=== PATIENT | male | born 1985 | race Caucasian/White ===

== ENCOUNTER 2022-07-23 11:57 | Emergency (ER) | payer OTHER, SELFPAY ==
--- NOTE | ~2022-07-23 | XR_ITS ---
EXAMINATION: XR ankle RT min 3V INDICATION: Right ankle pain TECHNIQUE: Four views of the right ankle are obtained. COMPARISON: 07/16/2016 there is chronic heterotopic ossification distal to the lateral malleolus. Also FINDINGS: There is chronic heterotopic ossification distal to the lateral malleolus. There is a quest ionable new heterotopic ossification immediately adjacent to the lateral malleolus. Also seen is a ch ronic triangular fragment adjacent to the medial malleolus, consistent with prior fracture. Ankle ali gnment is normal. The soft tissues are unremarkable. IMPRESSION: 1. Possible acute avulsion injury of the lateral malleolus. Reviewed, dictated and finalized at location B.
[2022-07-23 12:11] VITALS: BP 143/88; PULSE 73; RESP 18; TEMP 36.6; O2SAT 99
--- NOTE | 2022-07-23 12:11 | ED.GENADULT ---
HPI - General Adult General Chief complaint: Extremity Injury, Lower Stated complaint: foot injury History of Present Illness HPI narrative: 36 y/o male. PMHx None reported. [facility] with acute complaints of RT ankle pain, S/P injury immediately [employer]ENT. Client tells me he had suffered a mechanical injury, he was helping someone at home, ambulating outside, and accidentally stepped off of the curb on his Driveway. He reports an immediate 'pop' and sudden pain and swelling to his RT ankle. Denies prodromal deficits. No falls or additional injury has been identified. No loss of lower extremity sensation. Non-diabetic. No additional acute c/o upon PE. Related Data Home Medications Medication Instructions Recorded Confirmed bupropion HCl 150 mg 24 hr tablet, 150 mg PO DAILY 07/23/22 07/23/22 extended release (Wellbutrin XL) citalopram 40 mg tablet (Celexa) 40 mg PO DAILY 07/23/22 07/23/22 rosuvastatin 5 mg tablet (Crestor) 5 mg PO DAILY 07/23/22 07/23/22 testosterone cypionate 100 mg/mL 100 mg DIRECTED 07/23/22 07/23/22 intramuscular oil Allergies Allergy/AdvReac Type Severity Reaction Status Date / Time No Known Allergies Allergy Verified 07/23/22 12:18 Review of Systems Review of Systems: MUSCULOSKELETAL: RT ankle pain. Denies additional joint pain or myalgia. NEUROLOGIC: Denies numbness, or focal weakness. REMAINDER OF ROS: NEGATIVE. Exam Narrative: GENERAL: This is a well-nourished, well-developed adult, in no apparent distress. HEAD: normocephalic, atraumatic. CARDIOVASCULAR: Regular rate and rhythm. Pulses intact RLE, all sites. SKIN: warm, intact with mild soft tissue swelling and bruising overlying RT Lateral ankle. No tenting. NEURO: Alert, No focal neurologic deficits. Good sensation and discrimination RLE. EXTREMITIES: Moderate RT lateral malleolus soft tissue swelling. No obvious or open deformity or FXs. ROM limited 2/2 pain. No laxity. Pulses and sensation are preserved. Mild medial tenderness. Remainder of musculoskeletal exam is negative. Course Course Level of Care: Express Care Visit LOOM FIXER/PA Physician Supervision The patient has been informed that they may have pre-hypertension or Hypertension based on a BP reading in the clinic. It is recommended that the patient call the primary care provider listed on their discharge instructions or a physician of their choice as soon as possible (within 1-2week) to arrange follow up for further evaluation of possible pre-hypertension or hypertension. Vital Signs Vital signs: Vital Signs Temperature 36.6 C 07/23/22 12:11 Pulse Rate 73 07/23/22 12:11 Respiratory Rate 18 07/23/22 12:11 Blood Pressure 143/88 H 07/23/22 12:11 Pulse Oximetry 99 07/23/22 12:11 Oxygen Delivery Room Air 07/23/22 12:11 Temperature 36.6 C 07/23/22 12:11 Pulse Rate 73 07/23/22 12:11 Respiratory Rate 18 07/23/22 12:11 Blood Pressure 143/88 H 07/23/22 12:11 Pulse Oximetry 99 07/23/22 12:11 Oxygen Delivery Room Air 07/23/22 12:11 Medical Decision Making MDM Narrative Medical decision making narrative: -Mechanical RT ankle injury, w/o prodromal deficits. -No neurovascular deficits. No compartmental concerns. -ROM limited 2/2 pain, no laxity. -No open Fxs or tenting at site. -XRAY RT Ankle: Possible acute avulsion injury of the lateral malleolus. Incidentally noted is a chronic triangular fragment adjacent to the medial malleolus, consistent with prior fracture. Ankle alignment is normal. The soft tissues are unremarkable. -No gross displacement or angulation. -Client has been stabilized in Short leg OCL RT. He is to resume Non-weight bearing RLE at this time. -Crutches have been provided for safe mobility. -Post Splint application neurovascular status has been re-evaluated and remains well. -RICE regimen. I have given him a prescription for NSAID & Short course [place] prn for moderate brian
[2022-07-23] MEDS: KETOROLAC (*BKC) 60 MG/2 ML VIAL IM (12:42)
== END 2022-07-23 13:20 | disposition home or self-care (01) ==
PROVIDERS: Emergency Provider Nurse Practitioner Adult Health; PCP Physician Assistant
DX: S82.61XA Displaced fracture of lateral malleolus of right fibula, initial encounter for closed fracture (principal); X50.9XXA Other and unspecified overexertion or strenuous movements or postures, initial encounter
CPT/HCPCS: 29515; 73610; 96372; 99214; G0463; J1885

== ENCOUNTER 2023-01-28 13:12 | Emergency (ER) | payer OTHER, SELFPAY ==
--- NOTE | ~2023-01-28 | XR_ITS ---
XR chest 2V DATE: 01/28/2023 13:43 INDICATION: Pop in right shoulder while bench pressing. Severe pain. TECHNIQUE: PA and lateral views COMPARISON: None FINDINGS: Status post C5-6 inter-vertebral body fusion. Minimal levoscoliosis of the thoracic spine. No pulmonary infiltrate or consolidation, pleural effusion or pulmonary vascular congestion or pneumo thorax. IMPRESSION: No active cardiopulmonary disease Reviewed, dictated and finalized at location B.
--- NOTE | ~2023-01-28 | XR_ITS ---
XR shoulder RT min 2V DATE: 01/28/2023 13:43 INDICATION: Pop in right shoulder while bench pressing. Severe pain. TECHNIQUE: 4 views of right shoulder COMPARISON: None FINDINGS: No fracture or dislocation, periosteal reaction or bone destruction. Normal alignment at th e acromioclavicular and glenohumeral joints. No abnormal soft tissue calcification. IMPRESSION: Negative Reviewed, dictated and finalized at location B. IMPRESSION: Negative
[2023-01-28 13:22] VITALS: BP 149/90; PULSE 74; RESP 18; TEMP 36.6; O2SAT 100
--- NOTE | 2023-01-28 14:14 | ED.CHESTPAIN ---
HPI - Chest Pain General Chief Complaint: Chest Pain Stated Complaint: chest pain Time Seen by Provider: 01/28/23 14:08 History of Present Illness HPI narrative: Patient working out today when he felt a pop and pain to his right chest; worse with movement, trying ice and tylenol with some help. Related Data Home Medications Medication Instructions Recorded Confirmed bupropion HCl 150 mg 24 hr tablet, 150 mg PO DAILY 07/23/22 08/08/22 extended release (Wellbutrin XL) citalopram 40 mg tablet (Celexa) 40 mg PO DAILY 07/23/22 08/08/22 rosuvastatin 5 mg tablet (Crestor) 5 mg PO DAILY 07/23/22 08/08/22 testosterone cypionate 100 mg/mL 100 mg DIRECTED 07/23/22 08/08/22 intramuscular oil Allergies Allergy/AdvReac Type Severity Reaction Status Date / Time No Known Allergies Allergy Verified 01/28/23 13:45 Review of Systems Review of Systems: CONST: No fever. HEENT: No sore throat C/V: Right chest pain RESP: No difficulty breathing GI: No abdominal pain : No dysuria. M/S: Right chest/shoulder pain SKIN: No rash. NEURO: Some intermittent tingling to right arm now resolved PSYCH: [No depression] [facility] Past Medical History Medical History No pertinent past medical history Family History Family History Grandparent Cancer Social History Social History Smoking status: Never smoker Alcohol intake: current Substance use: never Living arrangements: with family Occupation/Education: occupation Additional occupation/education comments: [employer] Exam Narrative: EXAMINATION OF ORGAN SYSTEMS/BODY AREAS: Constitutional: Vital signs per nursing GENERAL:[No acute distress, non-toxic appearing.] HEAD: Normal with no signs of head trauma. EYES: EOMI, conjunctiva normal ENT: Hearing grossly intact LUNGS: Nonlabored breathing. HEART: [Regular rate and rhythm]. Tender to palpation right pectoralis with some mild swelling compared to right ABD: [Soft], [nontender to palpation] EXT: Able to abduct/flex right arm, though with pain. Normal radial pulses SKIN: [No rashes or lesions.] NEURO: [Alert and oriented x 3. No gross focal sensory or strength deficits though exam limited by pain.] PSYCH: Normal affect Course Vital Signs Vital signs: Vital Signs Temperature 97.8 F 01/28/23 13:22 Pulse Rate 74 01/28/23 13:22 Respiratory Rate 18 01/28/23 13:22 Blood Pressure 149/90 H 01/28/23 13:22 Pulse Oximetry 100 01/28/23 13:22 Temperature 97.8 F 01/28/23 13:22 Pulse Rate 74 01/28/23 13:22 Respiratory Rate 18 01/28/23 13:22 Blood Pressure 149/90 H 01/28/23 13:22 Pulse Oximetry 100 01/28/23 13:22 MDM - Chest Pain MDM Narrative Medical decision making narrative: Patient presents with right-sided chest pain after lifting weights, vital signs stable here, on exam he does have some tenderness and swelling to the right pectoral muscle, he has reproduction of this pain with extension of his right arm however he is still able to move his arm, I suspect likely muscle injury, he is neurovascularly intact with good pulses and intact sensation, I did offer sling for comfort which she declined, he will be given follow-up to orthopedics, and is I have discussed with him he may benefit from MRI in the future. Chest x-ray and shoulder x-ray here does not show any obvious acute bony abnormality without fracture or dislocation. He is given return precautions and stable for discharge at this time. Discharge Plan Discharge Clinical Impression: Strain of right pectoralis muscle Patient Disposition: Home, Self-Care Condition: Stable Instructions: Antibiotic Form, Muscle Strain (ED) Additional Instructions: Please follow up with the orthopedic surgeon as you may need an MRI later if your
== END 2023-01-28 14:26 | disposition home or self-care (01) ==
PROVIDERS: Emergency Provider Emergency Medicine; PCP Physician Assistant
DX: S29.011A Strain of muscle and tendon of front wall of thorax, initial encounter (principal); X50.0XXA Overexertion from strenuous movement or load, initial encounter
CPT/HCPCS: 71046; 73030; 99284

== ENCOUNTER → 2023-02-09 10:16 | Outpatient (CLI) | payer OTHER, SELFPAY ==
--- NOTE | ~2023-02-09 | MR_ITS ---
EXAMINATION: MR shoulder RT wo con DATE: 02/09/2023 11:41 INDICATION: Right shoulder pain and swelling. TECHNIQUE: Magnetic resonance imaging (MRI) of the right shoulder was performed without intravenous c ontrast. Sequences included axial PD-weighted FS FSE, coronal oblique PD-weighted FS FSE and T2-weigh tunde FS FSE, and sagittal oblique T2-weighted FS FSE and T1-weighted FSE. COMPARISON: Right shoulder radiographs 01/28/2023 FINDINGS: Coracoacromial arch: The acromion undersurface is curved in morphology (type II). There is mild acromioclavicular joint os teoarthritis. There is mild subacromial/subdeltoid bursitis. Rotator cuff: There is mild supraspinatus and infraspinatus tendinopathy. Teres minor tendon is normal. Subscapular is tendon is normal. No tear. The rotator cuff muscle bellies are normal. Biceps tendon and glenoid labrum: Biceps tendon is in bicipital groove. Intra-articular biceps tendon is normal. The glenoid labrum is normal. Fluid: There is no glenohumeral joint effusion. Bones/cartilage: Glenoid cartilage is normal. Humeral head cartilage is normal. Other: Partially visualized is edema in right pectoralis major muscle. IMPRESSION: 1. Partially visualized edema in right pectoralis major muscle, consistent with muscle strain. 2. Mild rotator cuff tendinopathy. No tear. 3. Mild subacromial/subdeltoid bursitis. 4. Mild acromioclavicular joint osteoarthritis. Reviewed, dictated and finalized at location A.
== END ==
PROVIDERS: PCP Physician Assistant; Visit Provider Orthopaedic Surgery
DX: M79.89 Other specified soft tissue disorders (principal); M19.011 Primary osteoarthritis, right shoulder; M75.51 Bursitis of right shoulder
CPT/HCPCS: 73221

== ENCOUNTER → 2023-03-21 11:33 | Outpatient (CLI) | payer OTHER, SELFPAY ==
--- NOTE | ~2023-03-21 | MR_ITS ---
EXAMINATION: MR chest wo con DATE: 03/21/2023 12:37 INDICATION: Right pectoral muscle strain TECHNIQUE: Magnetic resonance imaging (MRI) of the right chest was performed without intravenous cont rast. A marker was placed over the region of concern. Sequences included axial T1-weighted FSE and f luid sensitive FSE STIR with large rwbuh-dw-[id number] of the entire chest as well as axial, sagittal and c oronal small [id number]-im-[id number] of the right side of the chest also with axial T1-weighted FSE and fluid s ensitive FSE STIR. COMPARISON: Right shoulder MRI dated 02/09/2023 and chest radiograph dated 02/07/2023 FINDINGS: There is a T2 hyperintense tetrahedral shaped intramuscular fluid collection at the myotendinous junc tion of the right pectoralis major muscle which measures 4.1 x 1.5 x 4.4 similar maximal orthogonal d imensions at the site of a partial tear at the myotendinous junction. On sagittal images. Affected re gion of muscle comprises approximately one fourth of the cross-sectional area of the muscle belly. Th ere appears to be approximately 6 cm medial retraction of the tear margin however the exact lateral m argin of the tear is difficult to ascertain. Remaining musculature of the chest appears normal and sy mmetric. Although not performed as a smaller dmfrv-lf-cfed dedicated right shoulder MRI, the right sh oulder appears unremarkable with no evident labral tear or rotator cuff tear with no glenohumeral jaymie nt effusion. Acromioclavicular joint is also unremarkable. There is metallic magnetic field artifact associated with what appears to be a prosthetic disc at C6-C7 as seen on prior chest radiograph. Visu alized thoracic spine is unremarkable. Heart size is normal. No pericardial or pleural effusion. IMPRESSION: 1. Partial thickness tear along the distal myotendinous junction of the right pectoralis major muscle which appears to involve less than one third of the cross-sectional area of the muscle belly. Reviewed, dictated and finalized at location A. IMPRESSION: 1. Partial thickness tear along the distal myotendinous junction of the right p ectoralis major muscle which appears to involve less than one third of the cros s-sectional area of the muscle belly.
== END ==
PROVIDERS: PCP Orthopaedic Surgery
DX: S29.011A Strain of muscle and tendon of front wall of thorax, initial encounter (principal); T14.90XA Injury, unspecified, initial encounter
CPT/HCPCS: 71550

== ENCOUNTER 2023-04-30 13:04 | Emergency (ER) | payer OTHER, SELFPAY ==
--- NOTE | ~2023-04-30 | XR_ITS ---
. XR nasal bones min 3V 04/30/2023 13:35 Indication: Trauma to the face. Procedure: 3 views nasal bones Comparison: No prior studies for comparison. Findings: No significant nasal septal deviation. Orbits are unremarkable. There is a nondisplaced fra cture distal tip of the nasal bone. Impression: 1: Nondisplaced fracture distal tip of the nasal bone. Reviewed, dictated and finalized at location L. Impression: 1: Nondisplaced fracture distal tip of the nasal bone.
[2023-04-30 13:25] VITALS: BP 170/94; PULSE 80; RESP 16; TEMP 36.6; O2SAT 97
--- NOTE | 2023-04-30 13:26 | PC.NURSE ---
TOOK PATIENT'S BLOOD PRESSURE TWICE. BOTH WERE IN THE 170/94. PATIENT DID INFORM ME THAT HE HAD TAKEN PRE WORK OUT PRIOR TO VISIT HE WAS AT THE GYM WHEN INJURY OCCURED.
--- NOTE | 2023-04-30 13:29 | ED.WOUNDLAC ---
HPI - Wound/Laceration General Chief Complaint: Wound/Laceration Stated Complaint: nose injury Time Seen by Provider: 04/30/23 13:25 Source: patient, RN notes reviewed and old records reviewed Mode of arrival: ambulatory Limitations: no limitations History of Present Illness HPI narrative: 37 year old male who presents to [facility] care with complaints of nasal injury. Patient reports that he was working out this morning and weight on equipment came loose causing him to go forward and he hit his nose on metal bar. Patient has 1cm laceration to the bridge of his nose with some swelling and bruising. Patient denies any LOC and reports that his tetanus is up to date. He reports that he called his PCP and was recommended to get follow-up at either ER or urgent care.Patient reports that it did bleed a lot at time of injury. Patient rates his pain 5/10 reports throbbing has taken some Tylenol for his pain. Onset (ago): hour(s) (this morning) Location: face (bridge of nose) Place: other (gym) Patient tetanus UTD: Yes Treatments prior to arrival: bandage and other (Tylenol) Related Data Home Medications Medication Instructions Recorded Confirmed bupropion HCl 150 mg 24 hr tablet, 150 mg PO DAILY 07/23/22 04/30/23 extended release (Wellbutrin XL) citalopram 40 mg tablet (Celexa) 40 mg PO DAILY 07/23/22 04/30/23 rosuvastatin 5 mg tablet (Crestor) 5 mg PO DAILY 07/23/22 04/30/23 testosterone cypionate 100 mg/mL 100 mg DIRECTED 07/23/22 04/30/23 intramuscular oil zolpidem 5 mg tablet 5 mg PO PRN PRN Insomnia 04/30/23 04/30/23 Allergies Allergy/AdvReac Type Severity Reaction Status Date / Time No Known Allergies Allergy Verified 04/30/23 13:19 Review of Systems Review of Systems: CONSTITUTIONAL: Denies fever, chills, or sweats. CARDIOVASCULAR: Denies chest pain, palpitations, or edema. RESPIRATORY: Denies cough or dyspnea. SKIN: Reports laceration to the bridge of nose with swelling and some bruising no acute bleeding at this time MUSCULOSKELETAL: Denies musculoskeletal pain NEUROLOGIC: Denies numbness, or weakness.reports some headache pain, denies any dizziness,denies any LOC at time of injury. All systems reviewed & are unremarkable except as noted in HPI and below PMFSH Past Medical History Medical History (Updated 05/01/23 @ 07:33 by Arlette Thorne NP) Anxiety and depression Elevated cholesterol Right shoulder pain Rupture of pectoralis major muscle Surgical History Surgical History (Updated 05/01/23 @ 07:19 by Arlette Thorne NP) H/O sinus surgery deviated septum History of tonsillectomy Hx of cervical spine surgery [place] teeth extracted Family History Family History Grandparent Cancer Social History Social History Smoking status: Never smoker Alcohol intake: current Substance use: never Living arrangements: with family Occupation/Education: occupation Additional occupation/education comments: [employer]- [place] Comments At time of signature, agree with nursing past medical, surgical, social and family history. There is no relevant family history pertinent to the presenting complaint Exam Narrative: GENERAL: Well-appearing, well-nourished, and in no acute distress. HEAD: Normocephalic, atraumatic. 1cm laceration to bridge of nose with minimal depth, small amount of bleeding, swelling to area and bruising NECK: Supple. no lymphadenopathy CHEST: Clear to auscultation. No respiratory distress.SAO2 97% on room air HEART: Regular rate and rhythm. No murmur heard. Normal peripheral pulses. EXTREMITIES: Normal range of motion. No edema. SKIN: Warm, dry, no rash. Reports 1cm linear laceration to bridge of nose minimal blood from wound at this time, swelling and bruising noted, pain to distal aspect also of nose, able to breath through nose without difficulty. lac
[2023-04-30 14:01] VITALS: BP 131/77
== END 2023-04-30 14:01 | disposition home or self-care (01) ==
PROVIDERS: Emergency Provider Registered Nurse; PCP Physician Assistant
DX: S02.2XXA Fracture of nasal bones, initial encounter for closed fracture (principal); W22.8XXA Striking against or struck by other objects, initial encounter; S01.21XA Laceration without foreign body of nose, initial encounter; E78.00 Pure hypercholesterolemia, unspecified; F41.9 Anxiety disorder, unspecified; F32.A Depression, unspecified
CPT/HCPCS: 12011; 70160; 99213; G0463

== ENCOUNTER 2024-03-04 09:20 | Outpatient (CLI) | payer OTHER, SELFPAY ==
--- NOTE | 2024-03-06 15:25 | WPDHOMESLEEP ---
Sleep Study - Home Unattended Date of Study: 03/04/24 Ordering Provider: Fouzia Berrios, PATrae Interpreting Provider: Rosalva Bhandari MD [place] [facility] Study Type: Watch PAT Height: 1.93 m Weight: 106.594 kg Body Mass Index: 28.5 Neck Circumference (inches): 17 [place]: 18 Reason for Sleep Study Hypersomnolence Sleep History Sadiq William is a 38-year-old man with fatigue and excessive daytime sleepiness. He never- awakens from sleep feeling short of breath. He rarely wakes at night with heartburn, belching or coughing.??He frequently snores loudly enough that others complain. He frequently has trouble sleeping when he has a cold. He never wakes up gasping for breath during the night. He never has breathing problems at night. He never sweats excessively at night. He never notices his heart pounding or beating irregularly during the night. He constantly falls asleep during the day. He never falls asleep involuntarily or while driving. He never experiences loss of muscle tone with strong emotion. 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 He never feels paralyzed on waking or falling asleep. He rarely experiences vivid dreams upon waking or falling asleep. He never feels afraid of going to sleep. He occasionally has nightmares. He occasionally recalls his dreams. He frequently has thoughts racing through his mind. He occasionally feels sad or depressed. He frequently feels anxiety. He rarely notices parts of his body jerk. He never kicks during the night. He rarely feels crawling or aching feelings in his legs. He rarely feels leg pain at night. He frequently has morning jaw pain, frequently grinds his teeth at night. He rarely feels bothered by pain during the day, never awakened by pain during the night. He occasionally wakes up feeling stiff in the morning, and he occasionally wakes feeling sore or achy. He rarely awakens with pain in his neck, spine, or joints. Normal bedtime and wake time are variable because his shifts change, either working 5:00 a.m. to 5:00 p.m. or 2:00 p.m. to 2:00 a.m. He falls asleep within 5 minutes of getting in the bed. He never wakes at night. He does awaken at night it happens in the middle of the night when 1 of his 4 young children crawls into his bed. He typically gets 7 hours of sleep. He takes naps in the afternoon or evening. A short nap lasting 10-15 minutes is not refreshing. He is usually drowsy for 3 hours after waking. He feels better in the evening compared to other times of day. Habits:??Tobacco: Never smoker Caffeine: 2 cups daily Alcohol: none Recreational substances: none [facility] Past Medical History Medical History Anxiety and depression Elevated cholesterol Right shoulder pain Rupture of pectoralis major muscle Surgical History Surgical History H/O sinus surgery deviated septum History of tonsillectomy Hx of cervical spine surgery [place] teeth extracted Family History Family History Grandparent Cancer Social History Social History Smoking status: Never smoker Alcohol intake: current Substance use: never Living arrangements: with family Occupation/Education: occupation Additional occupation/education comments: [employer] Medications Home Medications Medication Instructions Recorded Confirmed Type bupropion HCl 150 mg 24 hr tablet, 150 mg PO DAILY 07/23/22 04/30/23 History extended release (Wellbutrin XL) citalopram 40 mg tablet (Celexa) 40 mg PO DAILY 07/23/22 04/30/23 History rosuvastatin 5 mg tablet (Crestor) 5 mg PO DAILY 07/23/22 04/30/23 History testosterone cypionate 100 mg/mL 100 mg DIRECTED 07/23/22 04/30/23 History intramuscular oil
[2024-03-06 15:38] VITALS: BMI 28.5
== END 2024-03-05 07:30 | disposition home or self-care (01) ==
PROVIDERS: PCP Physician Assistant; Visit Provider Physician Assistant
DX: G47.33 Obstructive sleep apnea (adult) (pediatric) (principal)
CPT/HCPCS: 95800

== ENCOUNTER 2024-05-30 09:54 | Emergency (ER) | payer OTHER, SELFPAY ==
[2024-05-30 09:53] VITALS: BP 143/86; PULSE 104; RESP 15; TEMP 37.2; O2SAT 97
--- NOTE | 2024-05-30 11:18 | ED.GENADULT ---
HPI - General Adult General Chief complaint: Extremity Injury, Lower Stated complaint: kickball injury to leg Time Seen by Provider: 05/30/24 10:48 History of Present Illness HPI narrative: 38-year-old male presenting to the emergency department for evaluation for a left hamstring injury. Patient was playing kickball, he had finished the run to first, turned and felt a pop in the left posterior hamstring. Patient denies any pain in the hip or the knee. Patient did fall to the ground but denies any other pain or injury. Patient does report difficulty straightening the leg. Related Data Home Medications Medication Instructions Recorded Confirmed bupropion HCl 150 mg 24 hr tablet, 150 mg PO DAILY 07/23/22 04/30/23 extended release (Wellbutrin XL) citalopram 40 mg tablet (Celexa) 40 mg PO DAILY 07/23/22 04/30/23 rosuvastatin 5 mg tablet (Crestor) 5 mg PO DAILY 07/23/22 04/30/23 testosterone cypionate 100 mg/mL 100 mg DIRECTED 07/23/22 04/30/23 intramuscular oil zolpidem 5 mg tablet 5 mg PO PRN PRN Insomnia 04/30/23 04/30/23 Allergies Allergy/AdvReac Type Severity Reaction Status Date / Time No Known Allergies Allergy Verified 05/30/24 10:01 Review of Systems Review of Systems: All systems reviewed & are unremarkable except as noted in HPI and below PMFSH Past Medical History Medical History Anxiety and depression Elevated cholesterol Right shoulder pain Rupture of pectoralis major muscle Surgical History Surgical History H/O sinus surgery deviated septum History of tonsillectomy Hx of cervical spine surgery [place] teeth extracted Family History Family History Grandparent Cancer Social History Social History Smoking status: Never smoker Alcohol intake: current Substance use: never Living arrangements: with family Occupation/Education: occupation Additional occupation/education comments: [employer]- [employer] Exam Narrative: APPEARANCE: Well appearing, no pain, no distress, well-nourished. HEAD: normocephalic, atraumatic. EYES: PERRLA/EOMI, conjunctivae clear. NOSE: Normal no drainage EARS:TMS clear with good light reflex. THROAT: Pharynx clear, no exudate. NECK: Supple. No adenopathy, no masses. RESPIRATORY: Airway patent, respirations nonlabored. Clear to auscultation bilaterally, no rales, rhonchi, wheezing. CARDIOVASCULAR: Regular rate and rhythm without murmurs rubs or gallops. ABDOMINAL: Soft, nontender, nondistended, normal bowel sounds MUSCULOSKELETAL: Tenderness to left hamstring with no significant ecchymosis or edema. No tenderness to left hip or knee. NEURO: Alert. Cranial nerves II through XII intact. Course Vital Signs Vital signs: Vital Signs Temperature 98.9 F 05/30/24 09:53 Pulse Rate 104 H 05/30/24 09:53 Respiratory Rate 15 05/30/24 09:53 Blood Pressure 143/86 H 05/30/24 09:53 Pulse Oximetry 97 05/30/24 09:53 Oxygen Delivery Room Air 05/30/24 09:53 Temperature 98.9 F 05/30/24 09:53 Pulse Rate 88 05/30/24 11:35 Respiratory Rate 20 05/30/24 11:35 Blood Pressure 133/86 05/30/24 11:35 Pulse Oximetry 99 05/30/24 11:35 Oxygen Delivery Room Air 05/30/24 09:53 Medical Decision Making MDM Narrative Medical decision making narrative: 38-year-old male present to the emergency department for evaluation for an injury to his left posterior upper leg. Suspect a hamstring strain. Patient was provided medication for pain control, crutches for limited weight-bearing and instructions have close follow-up with Orthopedics. All questions concerns were addressed. Patient was comfortable the plan for discharge and close follow-up. Differential Diagnosis Differential Diagnosis: Hamstring strain, ham
[2024-05-30] MEDS: CYCLOBENZAPRINE HCL 10 MG TABLET PO (11:29)
[2024-05-30] MEDS: HYDROcodone/acetaminophen (*CRX) 5-325 MG TABLET 1 TAB PO (11:29)
[2024-05-30 11:35] VITALS: BP 133/86; PULSE 88; RESP 20; O2SAT 99
== END 2024-05-30 11:37 | disposition home or self-care (01) ==
PROVIDERS: Emergency Provider Emergency Medicine; PCP Physician Assistant
DX: S76.312A Strain of muscle, fascia and tendon of the posterior muscle group at thigh level, left thigh, initial encounter (principal); E78.00 Pure hypercholesterolemia, unspecified; F41.9 Anxiety disorder, unspecified; F32.A Depression, unspecified; X50.9XXA Other and unspecified overexertion or strenuous movements or postures, initial encounter; Y93.6A Activity, physical games generally associated with school recess, summer camp and children; Z79.899 Other long term (current) drug therapy
CPT/HCPCS: 99283; A9270

== ENCOUNTER 2025-04-08 15:14 | Outpatient (CLI) | payer OTHER, SELFPAY ==
--- NOTE | ~2025-04-08 | MR_ITS ---
MRI of the right shoulder Technique: Axial proton-density fat-sat images, coronal proton density fat-sat and T2 fat-sat images, and sagittal T1-weighted and T2 fat-sat images were acquired. Clinical History: Rotator cuff impingement Findings: There is minimal degenerative changes AC joint. Coracoclavicular, coracoacromial, and corac ohumeral ligaments are intact. Supraspinatus and infraspinatus tendons are intact, without partial or full-thickness tear. Subscapul gustavo tendon is intact. Tendon of the long head of the biceps is intact. No labral tear present. Inferior glenohumeral ligament is intact. No degenerative change or effusion of the glenohumeral join t. No fluid distention of the subacromial/subdeltoid bursa. No muscle atrophy or edema. Impression: Minimal AC joint degenerative change. No other significant findings. Reviewed, dictated and finalized at [facility]. Impression: Minimal AC joint degenerative change. No other significant findings.
== END 2025-04-08 15:15 | disposition home or self-care (01) ==
LOC: MICIMG 15:17
PROVIDERS: PCP Physician Assistant; Visit Provider Family Medicine Sports Medicine
DX: M75.41 Impingement syndrome of right shoulder (principal)
CPT/HCPCS: 73221